=== PATIENT | female | born 1995 | race African-American/Black ===

== ENCOUNTER 2020-04-30 06:25 | Inpatient (IN) | payer OTHER, SELFPAY ==
--- NOTE | 2020-04-29 17:24 | HPE ---
DATE OF ANTICIPATED ADMISSION: 04/30/2020 This patient is a 24-year-old 2, para 1, whose last menstrual period (LMP) was 07/31/2019, estimated date of confinement (EDC) 08/05/2020. She is booked for elective repeat section on 04/30/2020. PAST HISTORY: On 10/16/2018 at 38 weeks had a primary lower section for nonreassuring heart tones. Infant, 6 pounds 13 ounces. Her risk factors are she has chronic hypertension, on no medications, she had a history of herpes simplex virus 2 (HSV2) and has been on Valtrex since 36 weeks. She decided to have an elective repeat section 04/30/2020. she has GBS positive, and she is an AGDM1, on diet, and she has chronic anemia and is on iron. LABORATORY VALUES: She is O positive. HIV negative, hepatitis negative, RPR negative, rubella immune, Varicella immune. Pap was normal. Urine was positive for GBS. Gonorrhea and chlamydia are negative. GBS is positive. One-hour glucose is not available. The rest of the examination is unremarkable. She is normocephalic, atraumatic. Neck: Full range of motion. Pupils equal and reactive to light. Distal pulses are symmetric. No evidence of deep venous thrombosis (DVT), pulmonary embolus (PE), or superficial phlebitis. Chest is clear bilaterally to bases. No wheezes or rhonchi. No costovertebral angle (CVA) tenderness. Abdomen is soft. Four- quadrant bowel sounds are noted. The incisional scar is noted with some keloid formation. Her blood pressure today is 129/85, respirations are 16, pulse is 88. She is 171 pounds. She has no rashes, lesions, or pruritus. No arthralgia or myalgia. No complaint of joint pain. No complaints of cough, wheeze, shortness of breath, or dyspnea on exertion. No nausea, vomiting, diarrhea, or constipation. PAST MEDICAL HISTORY: 1. Anemia. 2. History of HSV positive. PAST SURGICAL HISTORY: section. We discussed the risks and benefits of section, including hemorrhage, infection, perforation, , reoperation, remote possibility of blood transfusion, remote possibility of hysterectomy for life-threatening bleeding situations. The remote possibility of laceration or admission to the intensive care unit (NICU). After discussing risks and benefits of same, patient expressed understanding. A 20-minute discussion with 20-minute physical examination. She signed the consent form. All questions were answered. Patient suicidal ideation booked for 04/30/2020. Medications were picked up at [facility]. COVID testing has already been done. We will await and anesthesia consult and proceed accordingly. DAVIDD
[2020-04-30] VITALS (8 sets, daily range): BP systolic 104–123; BP diastolic 55–73
[~2020-04-30] VITALS: Ht 152.4 cm; Wt 77.5 kg
[~2020-04-30 06:25] MED LIST: IRON325T2 PO; PRENTAB53 PO; VALT500T PO
[2020-04-30] MEDS ORDERED: BAYE81TA10 PO (07:34)
[2020-04-30] MEDS ORDERED: BICITRA 30ML SOLN UDC PO ONE (07:45)
[2020-04-30] MEDS ORDERED: BUPIVACAINE HCL 0.25% 10ML VIAL SC ONE (07:45)
[2020-04-30] MEDS ORDERED: ceFAZolin SOD 2 GM in IV 1 EA IV ONE (07:45)
[2020-04-30] MEDS ORDERED: AZITHROMYCIN INJ 500 MG, VIAL MATE ADAPTER 1 EACH in D5W 250 ML IV SCH (07:45)
[2020-04-30] MEDS ORDERED: LR 1,000 ML IV SCH ×2 (08:00→12:30)
[2020-04-30 08:02] LABS: HEMATOCRIT 28.7 % (36.0-47.0); HEMOGLOBIN 9.2 g/dl (12.0-15.5); MEAN CORPUSCULAR HEMOGLOBIN 26.7 pg (27.0-33.0); MEAN CORPUSCULAR HGB CONC 32.1 g/dl (32.0-36.5); MEAN CORPUSCULAR VOLUME 83.2 fl (80.0-96.0); PLATELET COUNT, AUTOMATED 244 10^3/uL (150-450); RED BLOOD COUNT 3.45 10^6/uL (4.00-5.40); WHITE BLOOD COUNT 8.4 10^3/uL (4.0-10.0)
[2020-04-30] MEDS ORDERED: ACETAMINOPHEN 650 MG SUPP PR ONE (09:00)
[2020-04-30] MEDS: LR 1,000 ML IV SCH ×2 (09:04→16:32)
[2020-04-30] MEDS ORDERED: ePHEDrine SULFATE 25 MG/5 ML(5MG/ML) SYRINGE As Ordered ONE (09:57)
[2020-04-30] MEDS ORDERED: MORPHINE PRES-FREE INJ 10 MG/10 ML VIAL (J2274) As Ordered ONE (09:57)
[2020-04-30] MEDS ORDERED: PHENYLephrine HCL 500 MCG/5 ML (100MCG/ML) SYRINGE (J2370) As Ordered ONE (09:57)
[2020-04-30] MEDS ORDERED: OXYTOCIN 30 UNITS IN 0.9% NaCl 500ML IV BAG (J2590) As Ordered ONE ×2 (09:58→11:55)
[2020-04-30] MEDS ORDERED: diphenhydrAMINE 50MG/ML VIAL (J1200) IV PRN (10:15)
[2020-04-30] MEDS ORDERED: ONDANSETRON 4MG/2ML VIAL IV PRN ×2 (10:15→12:30)
[2020-04-30] MEDS ORDERED: NALOXONE INJ 0.4MG/1ML VIAL (J2310 PER 1MG) IV PRN ×2 (10:15)
[2020-04-30] MEDS ORDERED: METOCLOPRAMIDE INJ 10MG/2ML VIAL (J2765 PER 1) IV PRN ×2 (10:15→12:30)
[2020-04-30] MEDS ORDERED: NALBUPHINE HCL 10 MG/ML AMP (J2300) IV PRN (10:15)
[2020-04-30] MEDS ORDERED: OXYTOCIN INJ 10 UNITS/ML VIAL (J2590) As Ordered ONE (10:21)
[2020-04-30] MEDS ORDERED: KETOROLAC 60MG 2ML VIAL As Ordered ONE (10:37)
[2020-04-30] MEDS ORDERED: ONDANSETRON 4MG/2ML VIAL As Ordered ONE (10:37)
[2020-04-30 10:52] LABS: CORD GAS ABE A -5.1; CORD GAS ABE V -3.9; CORD GAS HCO3 A 23.1 MEQ/L; CORD GAS HCO3 V 22.3 MEQ/L; CORD GAS O2 SAT A 49.4 %; CORD GAS O2 SAT V 85.8 %; CORD GAS PCO2 A 55.6 mmHg; CORD GAS PCO2 V 44.8 mmHg; CORD GAS PH A 7.236 UNITS; CORD GAS PH V 7.315 UNITS; CORD GAS PO2 A 24.5 mmHg; CORD GAS PO2 V 42.6 mmHg; CORD GAS SBC A 19.3 MEQ/L; CORD GAS TCO2 A 24.8 MEQ/L; CORD GAS TCO2 V 23.7 MEQ/L
[2020-04-30] MEDS ORDERED: IBUPROFEN 600MG TAB PO PRN (11:15)
[2020-04-30] MEDS ORDERED: IBUPROFEN 800 MG TAB PO PRN (11:15)
[2020-04-30] MEDS ORDERED: ACETAMINOPHEN TAB 650MG DOSE (2X325MG) PO PRN ×2 (11:15→16:00)
[2020-04-30] MEDS ORDERED: PERCOCET 5MG/325MG TAB PO PRN ×3 (11:15→12:30)
[2020-04-30] MEDS ORDERED: ACETAMINOPHEN 650 MG SUPP PR PRN ×2 (11:15→16:00)
[2020-04-30] MEDS ORDERED: MEASLES,MUMPS,RUBELLA VACCINE INJ (MMR-II) (90707) SC SCH (11:15)
[2020-04-30] MEDS ORDERED: ANUSOL HC CREAM 30GM TOP PRN (11:15)
[2020-04-30] MEDS ORDERED: OXYTOCIN DRIP 30 UNITS in IV 1 EA IV ONE (11:15)
[2020-04-30] MEDS ORDERED: MOM 30ML SUSPENSION UDC PO PRN (11:15)
[2020-04-30] MEDS ORDERED: RHOGAM 300 MCG (1500 IU) INJ (J2790) IM SCH (11:15)
[2020-04-30] MEDS ORDERED: DOCUSATE SODIUM 100 MG CAP PO PRN (11:15)
[2020-04-30] MEDS ORDERED: METHYLERGONOVINE MALEATE 0.2 MG TAB PO PRN (11:15)
[2020-04-30] MEDS ORDERED: ACETAMINOPHEN 500 MG TAB PO PRN ×2 (11:15→16:00)
[2020-04-30] MEDS ORDERED: fentaNYL 100 MCG/2 ML INJECTION (J3010) IV PRN (12:30)
[2020-04-30] MEDS: KETOROLAC 30 MG/ML 1ML VIAL IV SCH ×2 (16:14→21:03)
[2020-04-30] MEDS ORDERED: LR 1,000 ML IV ONE (18:30)
[2020-04-30] MEDS ORDERED: LR 500 ML IV ONE (18:30)
[2020-04-30] MEDS ORDERED: PROMETHAZINE INJ 25 MG/ML VIAL (J2550) IV ONE (18:30)
[2020-05-01] MEDS: LR 1,000 ML IV SCH (01:00)
[2020-05-01 02:00] VITALS: BP 95/53
[2020-05-01] MEDS: KETOROLAC 30 MG/ML 1ML VIAL IV SCH ×2 (03:30→09:45)
[2020-05-01 05:27] VITALS: BP 104/58
[2020-05-01 08:04] LABS: HEMATOCRIT 24.3 % (36.0-47.0); HEMOGLOBIN 7.7 g/dl (12.0-15.5); MEAN CORPUSCULAR HEMOGLOBIN 26.8 pg (27.0-33.0); MEAN CORPUSCULAR HGB CONC 31.7 g/dl (32.0-36.5); MEAN CORPUSCULAR VOLUME 84.7 fl (80.0-96.0); PLATELET COUNT, AUTOMATED 207 10^3/uL (150-450); RED BLOOD COUNT 2.87 10^6/uL (4.00-5.40); WHITE BLOOD COUNT 10.7 10^3/uL (4.0-10.0)
[2020-05-01] MEDS: PRENATAL VITAMINS CHEWABLE TABLET PO SCH (08:15)
[2020-05-01 10:10] VITALS: BP 113/63
[2020-05-01] MEDS ORDERED: IBUPROFEN 800 MG TAB PO SCH (13:15)
[2020-05-01 13:55] VITALS: BP 109/56
[2020-05-01] MEDS: IBUPROFEN 800 MG TAB PO SCH (17:42)
[2020-05-01 22:00] VITALS: BP 124/69
[2020-05-02 02:00] VITALS: BP 129/70
[2020-05-02] MEDS: IBUPROFEN 800 MG TAB PO SCH ×2 (02:02→08:54)
--- NOTE | 2020-05-02 05:34 | IPNPDOC ---
Progress Note Date of Service: May 02, 2020 Progress Note SUBJECT: Ms. Moreno is a 24-year-old POD2 s/p uncomplicated RCD. She has been ambulating, voiding spontaneously without issue and tolerating regular diet. Breast feeding without issue. Reports lochia is like a normal period. Patient is ambulating well. Denies any pain. Voiding and stooling without difficulty. OBJECTIVE: VITAL SIGNS: Within normal limits, afebrile. Alert and oriented times three. Breath sounds clear to auscultation. Heart rate: Regular rate and rhythm, no murmurs, rubs or gallops. Abdomen: Fundus firm at U-2. Soft, NTTP. Pfannenstiel incision is covered with dressing that has no strikethrough [Minimal] lochia. ASSESSMENT: Ms. Moreno is a 24-year-old POD2 s/p uncomplicated RCD. Vitals within normal limits, afebrile, hemodynamically stable with no evidence of infection. PLAN: 1. Discharge to home today. 2. Motrin for pain, percocet for breakthrough 3. Encourage breast feeding and ambulation. 4. Minipill for contraception 5. Routine PP visit in 6 weeks in clinic. 6. Discussed return precautions at length. VS, I&O, 24H, Fishbone Vital Signs/I&O Vital Signs Date Time Temp Pulse Resp B/P (MAP) Pulse Ox O2 Delivery O2 Flow Rate FiO2 05/02/20 02:00 98.3 85 18 129/70 (89) 98 Room Air Laboratory Data 24H LABS Laboratory Tests 2 05/01/20 07:03: Nucleated Red Blood Cells % (auto) 0.0 CBC/BMP Laboratory Tests 05/01/20 07:03 SURI GREEN DO May 02, 2020 05:34
[2020-05-02 06:00] VITALS: BP 116/75
[2020-05-02 07:16] LABS: HEMATOCRIT 24.9 % (36.0-47.0); HEMOGLOBIN 7.8 g/dl (12.0-15.5); MEAN CORPUSCULAR HGB CONC 31.3 g/dl (32.0-36.5); PLATELET COUNT, AUTOMATED 229 10^3/uL (150-450)
[2020-05-02] MEDS: PRENATAL VITAMINS CHEWABLE TABLET PO SCH (08:54)
--- NOTE | 2020-05-03 12:39 | IPN ---
DATE: 05/01/2020 This lady is a 2, now para 2, was admitted for a repeat section, having had a previous section. She delivered a live female , 6 pounds, 9 ounces, 2990 grams, scores of 8 and 9, at 1 and 5 minutes, respectively. Cord was around the neck times one, loose. The arterial pH was 7.23, base excess -5.1, venous pH 7.31, base excess -3.9. Her admitting hemoglobin was 9.2, hematocrit 28.7, and platelets were 244. This morning, her blood pressure is 104/68, respirations are 18, pulse 62, temperature is 97.9. She had a difficult night with nausea and vomiting secondary to the IV medications for pain management. Eventually, after much retching and coughing she settled down with some Zofran, Phenergan, and this morning she is much better, although during the coughing episodes overnight she had a small leak in the incisional site. The bandage this morning is stable, we are going to re-change it, there is no leaking at the present time, the incision is still intact. Her last blood pressure was 104/58, respirations were 18, pulse is 62, and temperature is 97.9. The rest of the examination is unremarkable. She is normocephalic, atraumatic. Neck full range of motion. Pupils equal and reactive to light. Distal pulses are symmetric. No evidence of deep venous thrombosis (DVT), pulmonary embolus (PE), or superficial phlebitis. Chest is clear bilaterally to the bases. No wheezes or rhonchi. No CVA tenderness. Abdomen is soft, four quadrant bowel sounds are noted. Incision as mentioned, there is some bloody discharge on the dressing but it is clean and dry. Abdomen is soft, uterus two below. Lochia is moderate. Four quadrant bowel sounds are noted. No urgency or frequency. No nausea, vomiting, diarrhea, or constipation at the present time. She has voided and passed gas this morning. In summary, we have a term gestation, repeat section, delivered a live female infant. Plans are for discharge tomorrow. Medications were dispensed at [facility] and picked up by her partner. The patient will have a 2 week incision check and 6 week check at [facility]. All questions were answered, 20 minute discussion. ELENITA
--- NOTE | 2020-06-23 07:17 | RO ---
DATE OF OPERATION: 04/30/2020 PREOPERATIVE DIAGNOSIS: Repeat section POSTOPERATIVE DIAGNOSIS: Repeat section OPERATION PROPOSED: Repeat section. OPERATION PERFORMED: Repeat section. ANESTHESIA: Spinal, plus local anesthetic for intraperitoneal procedure. ESTIMATED BLOOD LOSS: 200 cc. SURGEON: Humberto Cordero MD EXTRACORPOREAL CIRCULATION SPECIALIST: YOLIS Arango After adequate time-out, prepped and draped in the supine position, a Perez catheter and the bladder draining clear urine, acetaminophen suppository of 1300 per rectum, antibiotics appropriately preoperative sequentials in place. A Pfannenstiel incision was made 2 fingerbreadths above the symphysis pubis passing through abdominal layers securing hemostasis. Opening peritoneal cavity, Mobius was placed. The bladder was reflected well down anteriorly. Low transverse incision made into the uterus. ARM draining clear liquor. Delivered a live female weighing 6 pounds, 9 ounces, 2190 gm, score of 8 and 9 and 1 and 5 minutes respectively. Arterial pH 7.23, base excess -5.1, venous base 7.31, base excess -3.9. Placenta had 3 vessels, the cord membranes and tissues intact. Manual extraction of the placenta from the uterus. The uterus contacted well down with Pitocin. Sweeping the uterus, no evidence of tissue or membranes was noted. The lower segment was oversewn in the usual fashion, two layers imbricating the second layer. Reperitonealization was performed. The instrument and pad correct. The Mobius was removed. Both ovaries and tubes appear to be normal. The abdomen was then closed with a good contracted uterus. Running stitch for the peritoneum, same for the fascia. Interrupt for subcutaneous. Dexon to the skin. Marcaine 0.25%, 10 ml. Mepore dressing was placed and the patient was sent to recovery in good condition. ELENITA
== END 2020-05-02 14:26 | disposition home or self-care (01) | DRG 773 ==
LOC: M LDI 06:25 → M OBS 12:48
PROVIDERS: ADMIT Obstetrics & Gynecology; ATTEND Obstetrics & Gynecology
PROC: 10D00Z1 Extraction of Products of Conception, Low, Open Approach (ICD-10-PCS; principal; 2020-04-30 08:30)
DX: O34.211 Maternal care for low transverse scar from previous cesarean delivery (principal); Z3A.39 39 weeks gestation of pregnancy; O99.824 Streptococcus B carrier state complicating childbirth; O99.02 Anemia complicating childbirth; D64.9 Anemia, unspecified; O69.81X0 Labor and delivery complicated by cord around neck, without compression, not applicable or unspecified; Z37.0 Single live birth; O9A.23 Injury, poisoning and certain other consequences of external causes complicating the puerperium; R11.2 Nausea with vomiting, unspecified; T39.95XA Adverse effect of unspecified nonopioid analgesic, antipyretic and antirheumatic, initial encounter

== ENCOUNTER → 2021-01-31 | Outpatient (CLI) | payer SELFPAY ==
[~2021-01-31] MED LIST changes: +BAYE81TA10 PO
== END ==
LOC: M LABSMTC 11:43
PROVIDERS: ATTEND Pediatrics
DX: Z11.52 Encounter for screening for COVID-19 (principal)

== ENCOUNTER → 2021-09-02 | Outpatient (REF) | LOC: M LABSMTC 12:57 | PROVIDERS: ATTEND Pediatrics | DX: Z11.52 Encounter for screening for COVID-19 (principal) ==